=== PATIENT | female | born 1950 | race Two or more races ===

== ENCOUNTER 2019-03-08 18:52 | Emergency (ER) | payer BC ==
[~2019-03-08] VITALS: Ht 157.5 cm; Wt 54.4 kg
[2019-03-08] MEDS ORDERED: SERT50TA14 (19:00)
[2019-03-08] MEDS ORDERED: UNK B/P MED (19:00)
[2019-03-08] MEDS ORDERED: PLAQUENIL (19:00)
--- NOTE | 2019-03-08 19:00 | NUR ---
To room 2A; S/P trip and fall. Ambulated to bathroom without dizziness or pain.
--- NOTE | 2019-03-08 19:10 | NUR ---
Seen by DR. Paz.
[2019-03-08] MEDS ORDERED: NEOMY/BACITRA/POLYMYXIN B OINT UD PACKET TP ONE ×3 (19:30→19:40)
--- NOTE | 2019-03-08 19:40 | NUR ---
Skin care provided to abrasions/lacerations by Kirk Hernandez.
[2019-03-08] MEDS ORDERED: TDAP DIPH,PERTUSS,TET VAC/PF 0.5 ML DISP.SYRIN IM ONE ×2 (19:44→19:45)
[2019-03-08] MEDS ORDERED: CLONIDINE HCL 0.2 MG TABLET PO ONE (20:00)
--- NOTE | 2019-03-08 20:07 | NUR ---
Dr. Paz aware of DU=135/99. Clonidine 0.2mg po given Patient's son at bedside.
[2019-03-08] MEDS ORDERED: CLONIDINE HCL 0.2 MG TABLET ONE (20:09)
--- NOTE | 2019-03-08 20:50 | NUR ---
BP remains elevated 214/101. Patient asymptomatic. Reevaluated by Dr. Paz.
[2019-03-08] MEDS ORDERED: LABETALOL HCL 100 MG/20 ML VIAL IV ONE (21:00)
--- NOTE | 2019-03-08 21:00 | NUR ---
Patient claims she's not sure if she took her BP med today. Son and patient advised appropriately.
--- NOTE | 2019-03-08 21:10 | NUR ---
Dr. Paz informed of BP 177/94. cancelled orders for saline lock and Labetalol IV. Okayed to DC patient. Patient and son informed.
--- NOTE | 2019-03-08 21:22 | NUR ---
BP 177/94; patient denies dizziness or headache. Patient discharged to home in stable conditon accompanied by son. Written and verbal after care instructions given. Patient and son verbalized understanding of instructions.
[2019-03-08 21:41] VITALS: BP 177/94
== END 2019-03-08 21:22 | disposition home or self-care (01) ==
LOC: ER 18:54
DX: S00.83XA Contusion of other part of head, initial encounter (principal); S80.01XA Contusion of right knee, initial encounter; I10 Essential (primary) hypertension; Z79.899 Other long term (current) drug therapy; W17.2XXA Fall into hole, initial encounter; Y93.89 Activity, other specified; Y92.89 Other specified places as the place of occurrence of the external cause; Y99.8 Other external cause status
CPT/HCPCS: 90715; A4663